=== PATIENT | female | born 1990 | race Caucasian/White ===

== ENCOUNTER 2019-02-22 05:55 | Outpatient (CLI) | payer BC ==
[~2019-02-22] VITALS: Ht 170.2 cm; Wt 96.6 kg
[~2019-02-22 05:55] MED LIST: BIRTH CONTROL PO; DOCU100C37 PO; IBUP-1780 PO; OXYC-465 PO; PREN1TAB19 PO
[2019-02-22] MEDS ORDERED: OXYC-465 PO (09:50)
[2019-02-22] MEDS ORDERED: IBUP-1780 PO (09:50)
[2019-02-22] MEDS ORDERED: DOCU100C37 PO (09:50)
--- NOTE | 2019-02-22 09:51 | Discharge Instructions ---
Discharge Instructions Discharge Medications New, Converted or Re-Newed RX: RX on Chart Patient Instructions Patient Instructions: as directed Return to The Hospital For: as directed Activity & Diet Discharge Diet: No Restrictions Activity as Tolerated: No Orders-Post D/C & Referrals Follow Up Appt: RTC 1 week for incision check. Call to make follow up appt. for patient in 4 weeks. Wound Care: Remove gwen, apply benzoin and steri strips. Activity Per routine post instructions. Please call in RX to patient pharmacy. Diet as tolerated Patient may shower or tub bathe as desired. Continue home meds ROCIO BEARD MD Feb 22, 2019 09:51
== END 2019-02-22 12:49 | disposition home or self-care (01) ==
LOC: PREOP 05:55
PROVIDERS: ATTEND Obstetrics & Gynecology
DX: Z01.818 Encounter for other preprocedural examination (principal)

== ENCOUNTER 2019-03-02 04:07 | Inpatient (IN) | payer BC ==
[2019-03-02] VITALS (11 sets, daily range): BP systolic 102–126; BP diastolic 65–78
[~2019-03-02] VITALS: Ht 170.2 cm; Wt 96.2 kg
--- NOTE | 2019-03-02 10:00 | NUR ---
MALICK GARCIA presented to unit via ambulation from home, accompanied by S.O., for repeat . MALICK GARCIA weighed, gowned, voided, and to bed. EFHM and TOCO applied, VS taken. MALICK GARCIA oriented to bed controls, call light, TV, heat, and A/C controls.
[2019-03-02] MEDS ORDERED: D5 LR IV SOLUTION 1,000 ML IV SCH ×2 (10:19→14:30)
[2019-03-02] MEDS ORDERED: ceFAZolin INJECTION 2,000 MG in WATER (STERILE) FOR INJECTION 10 ML IV ONE (10:30)
[2019-03-02] MEDS ORDERED: metroNIDAZOLE 500MG/100ML IVPB 100 ML IV ONE (10:30)
[2019-03-02] MEDS: LACTATED RINGERS 1,000 ML IV PRN ×2 (10:38→11:30)
[2019-03-02] MEDS ORDERED: CATHETER FLUSH 10 ML SYR IV PRN (10:45)
[2019-03-02] MEDS ORDERED: FAMOTIDINE 20MG/2ML IV (PEPCID) IV ONE (10:45)
[2019-03-02] MEDS ORDERED: METOCLOPRAMIDE INJ 10 MG/2 ML (REGLAN) IV ONE (10:45)
[2019-03-02] MEDS ORDERED: CITRIC ACID/SOB CIT (BICITRA) 30 ML UDC PO ONE (10:45)
[2019-03-02 10:48] LABS: BASOPHILS % (AUTO) 0 % (0-10); EOSINOPHILS # (AUTO) 0.1 10^3/uL (0.0-0.3); EOSINOPHILS % (AUTO) 1 % (0-10); HEMATOCRIT 37 % (35-52); HEMOGLOBIN 12.5 G/DL (11.5-16.0); LYMPHOCYTES # (AUTO) 1.4 X 10^3 (1.0-4.0); LYMPHOCYTES % (AUTO) 18 % (12-44); MEAN CORPUSCULAR HEMOGLOBIN 30 PG (25-34); MEAN CORPUSCULAR HGB CONC 33 G/DL (32-36); MEAN CORPUSCULAR VOLUME 90 FL (80-99); MEAN PLATELET VOLUME 11.3 FL (7.4-10.4); MONOCYTES # (AUTO) 0.5 X 10^3 (0.0-1.0); MONOCYTES % (AUTO) 7 % (0-12); NEUTROPHILS # (AUTO) 5.9 X 10^3 (1.8-7.8); NEUTROPHILS % (AUTO) 74 % (42-75); PLATELET COUNT 185 10^3/uL (130-400); WHITE BLOOD COUNT 7.9 10^3/uL (4.3-11.0)
[2019-03-02] MEDS ORDERED: ceFAZolin 2 GM/NS 50 ML IVPB IV ONE (11:00)
[2019-03-02] MEDS ORDERED: ceFAZolin 2 GM/50 ML NS 50 ML ONE (11:15)
[2019-03-02] MEDS ORDERED: fentaNYL INJECTION 100 MCG/2 ML AMP ONE (11:42)
--- NOTE | 2019-03-02 12:00 | HISTORY AND PHYSICAL ---
DATE OF SERVICE: 03/02/2019 ADMIT HISTORY AND PHYSICAL AND PREOPERATIVE HISTORY AND PHYSICAL HISTORY OF PRESENT ILLNESS: The patient is a 28-year-old G2, P1, 1 white female with an EDC of 03/10/2019. Admitted on 03/02/2019 at 38 weeks gestation for a repeat . She currently is 38 and 6/7 weeks. She has oligohydramnios that has been progressive. She denies ruptured membranes or bleeding. The GBS culture was negative. She has had no other problems with this . ALLERGIES: None. MEDICATIONS: vitamins. Medical, social, and surgical histories are per the antepartum record. PHYSICAL EXAMINATION: HEENT: Normal. NECK: Supple. No lymphadenopathy. No thyromegaly. ABDOMEN: Gravid, soft, nontender and nondistended. EXTREMITIES: Show no clubbing or cyanosis. There is no Homans sign. PELVIC EXAM: Deferred. ASSESSMENT AND PLAN: A 38 and 6/7 weeks gestation in a patient with a previous and with progressive oligohydramnios. The patient is admitted now for repeat delivery. Surgical risks, complications, recovery and follow up have been fully discussed. The patient accepts those risks and is ready to proceed with the repeat . Job ID: [id number] DocumentID: [id number] Dictated Date: 03/02/2019 11:41:49 Sheltered Workshop Worker Date: 03/02/2019 11:59:16 Dictated By: ROCIO BEARD MD
[2019-03-02] MEDS ORDERED: ONDANSETRON 4 MG/2 ML (SDV) Z0FRAN ONE (12:24)
[2019-03-02] MEDS ORDERED: BUPIVACAINE 0.5% 30 ML (SENSORCAINE) VIAL ONE (12:24)
[2019-03-02] MEDS: OXYTOCIN/NORMAL SALINE 500 ML IV SCH ×2 (13:00→22:59)
[2019-03-02] MEDS ORDERED: OXYTOCIN (PITOCIN) 10 UNIT/ML VIAL ONE (13:03)
--- NOTE | 2019-03-02 13:45 | NUR ---
Pt to PP room 308 via bed accompanied by OB staff. Pt and S.O. oriented to room and call light. packet and room service explained. SCD's on and activated. Fresh ice water provided. Pt denies needs or concerns at this time.
[2019-03-02] MEDS ORDERED: diphenhydrAMINE 50 MG/ML INJ (BENADRYL) IV PRN (14:00)
[2019-03-02] MEDS ORDERED: NALOXONE 0.4 MG/ML 1 ML (NARCAN) VIAL IV PRN (14:00)
[2019-03-02] MEDS ORDERED: ONDANSETRON 4 MG/2 ML (SDV) Z0FRAN IV PRN (14:00)
[2019-03-02] MEDS ORDERED: KETOROLAC 30 MG/ML VIAL ONE (14:21)
[2019-03-02] MEDS ORDERED: ONDANSETRON 4 MG/2 ML (SDV) Z0FRAN IVP PRN (14:30)
[2019-03-02] MEDS ORDERED: TETANUS,DIPTH,PERTUSS P/F (BOOSTRIX) 0.5 ML VIAL IM ONE (14:30)
[2019-03-02] MEDS ORDERED: MEASLES,MUMPS,RUBELLA 1 EA INJ SC ONE (14:30)
[2019-03-02] MEDS: KETOROLAC 30 MG/ML VIAL IVP SCH ×2 (14:30→20:31)
[2019-03-02] MEDS ORDERED: oxyCODONE/APAP 10/325MG (PERCOCET 10) TABLET PO PRN (14:30)
--- NOTE | 2019-03-02 15:15 | OPERATIVE REPORT ---
DATE OF SERVICE: 03/02/2019 PREOPERATIVE DIAGNOSES: Term at 38 and 6/7 weeks' gestation with previous and with progressive oligohydramnios. POSTOPERATIVE DIAGNOSES Term at 38 and 6/7 weeks' gestation with previous and with progressive oligohydramnios. OPERATIVE PROCEDURE: Repeat low transverse delivery of a viable female with Apgars of 8 and 9 at 1 and 5 minutes respectively, weight of 8 pounds 7 ounces. time of 12:21 and a cord blood pH is pending. OPERATIVE DESCRIPTION: With the patient in the supine position under satisfactory spinal analgesia, she was prepped and draped in the usual fashion for abdominal surgery. Beltre catheter was placed in the urinary bladder. Repeat Pfannenstiel incision was made through the skin with a scalpel at the site of the patient's previous Pfannenstiel incision. The abdomen was entered in the usual manner. There were some more adhesions of the omentum to the anterior abdominal wall and to the front of the uterus. These were lysed sharply and bluntly to allow complete access to the uterus. Bladder retractor placed into position and a clean scalpel was used to make a 4 cm hysterotomy incision transversely across the lower uterine segment that was extended by blunt dissection as well. Small amount of clear fluid was released on hysterotomy. Stone forceps were applied to facilitate the delivery of the female with stats as noted above. The was bulb suctioned on delivery of the head and again on completion of delivery. The umbilical cord was doubly clamped and cut and the infant passed to the pediatric nurse in attendance for the delivery. Cord bloods were obtained. The placenta delivered spontaneously was normal with a 3-vessel cord. The uterus was exteriorized and anterior wiped clean with a wet laparotomy sponge. Uterine incision closed with a running locked suture of 2-0 Vicryl. Additional sutures and additional adhesions were taken freed from the anterior surface of the uterus. With the adhesions freed, the anatomy restored to normal. No bleeding. The uterus was returned to abdominal cavity. All blood clot and debris was removed from the abdominal cavity. With sponge, needle counts correct, hemostasis assured. The anterior parietal peritoneum was closed with running suture of 2-0 Vicryl. Rectus muscles were closed with that suture. Rectus fascia was closed with 2-0 Vicryl, subcutaneous tissue was closed with 2-0 Vicryl and the skin was stapled. Job ID: [id number] DocumentID: [id number] Dictated Date: 03/02/2019 12:45:22 Appointment Manager Date: 03/02/2019 15:13:56 Dictated By: ROCIO BEARD MD
--- NOTE | 2019-03-02 18:30 | NUR ---
RN to room to answer call light. Pt needing to void. Pt assisted to standing position and ambulates self to bathroom without incident. +void, 425ml clear, yellow urine noted. Pericare provided and fresh vpad, underwear applied. Pt assisted back to bed, SCD's back on and activated. Pt denies needs or concerns at this time.
[2019-03-02] MEDS: DOCUSATE SODIUM 100 MG (COLACE) CAP PO SCH (20:31)
[2019-03-02] MEDS ORDERED: DOCUSATE SODIUM 100 MG (COLACE) CAP PO SCH (21:00)
--- NOTE | 2019-03-03 00:20 | NUR ---
pt pumping at this time, void noted, fresh ice water given. denies needs.
[2019-03-03 02:30] VITALS: BP 114/73
[2019-03-03] MEDS: KETOROLAC 30 MG/ML VIAL IVP SCH ×2 (02:45→08:59)
[2019-03-03 06:05] VITALS: BP 121/82
--- NOTE | 2019-03-03 07:00 | NUR ---
REPORT FROM SAUL MCCANN.
--- NOTE | 2019-03-03 07:43 | Progress Note ---
Standard Progress Note Progress Notes/Assess & Plan Date Seen by a Provider: Mar 03, 2019 Time Seen by a Provider: 07:42 Progress/Assessment & Plan This patient is without complaint. She is ambulating, voiding, tolerating oral intake well has good pain control. Patient denies chest pain, denies shortness of breath, denies nausea vomiting, and denies headache. Vital Signs 03/03/19 06:05 Temp 97.4 Pulse 78 Resp 18 B/P (MAP) 121/82 (95) Pulse Ox 99 O2 Delivery Room Air Vital signs are stable. Patient is afebrile. The abdomen is benign. The fundus is firm below the umbilicus and nontender. The incision is clean dry and intact. Extremities show no clubbing or cyanosis. There is no Homans sign. Assessment and plan postoperative day number 1 status post repeat doing well. Plan is for routine convalescence care ROCIO BEARD MD Mar 03, 2019 07:43
--- NOTE | 2019-03-03 08:00 | NUR ---
DR BEARD HERE NEW ORDERS RECEIVED.
[2019-03-03] MEDS: DOCUSATE SODIUM 100 MG (COLACE) CAP PO SCH ×2 (08:59→20:30)
[2019-03-03 09:00] VITALS: BP 119/79
--- NOTE | 2019-03-03 09:00 | NUR ---
INITIAL ASSESSMENT COMPLETED, PT RESTING COMFORTABLY IN BED WITH S/O AND INFANT AT SIDE. SCHEDULED MEDS GIVEN PER DR ORDERS. VSS. PLAN OF CARE EXPLAINED TO PT AND S/O, QUESTIONS ANSWERED, PT VERBALIZES UNDERSTANDING OF PLAN OF CARE. IV TORADOL GIVEN WITH SALINE FLUSH THEN D/C PER DR ORDERS. SHOWER SET UP, NO DISTRESS NOTED WILL CONTINUE TO MONITOR.
--- NOTE | 2019-03-03 10:15 | NUR ---
PT OUT OF SHOWER, UP AMBULATING IN HALLWAYS PUSHING IN OPEN CRIB, S/O AT SIDE, NO DISTRESS NOTED WILL MONITOR.
--- NOTE | 2019-03-03 11:25 | NUR ---
DR BEARD HERE VISITING WITH PT, NO NEW ORDERS OR C/O NOTED.
[2019-03-03 13:00] VITALS: BP 134/64
--- NOTE | 2019-03-03 13:00 | Anesthesia-Regional Post-Op ---
Regional Patient Condition Mental Status: Alert, Oriented x3 Circulation: Same as Pre-Op Headache: Absent Sensation: Full Recovery Motor Block: Absent Post Op Complications Complications None Follow Up Care/Instructions Patient Instructions None needed. Anesthesia/Patient Condition Patient is doing well, no complaints, stable vital signs, no apparent adverse anesthesia problems. No complications reported per nursing. NEVIN SILVER CRNA Mar 03, 2019 12:59
--- NOTE | 2019-03-03 13:35 | NUR ---
PT SITTING IN ROCKING CHAIR WITH INFANT IN ARMS, DENIES C/O OR NEEDS, PTS S/O AT SIDE.
--- NOTE | 2019-03-03 15:20 | NUR ---
SCHEDULED MOTRIN GIVEN, PT BACK TO BED, IS ORDERED FOR PT, RT CALLED TO BE NOTIFIED OF NEW ORDER.
[2019-03-03] MEDS: IBUPROFEN 800 MG (MOTRIN) TAB PO SCH ×2 (15:21→20:30)
[2019-03-03 17:59] VITALS: BP 121/70
--- NOTE | 2019-03-03 22:00 | NUR ---
pt awake in bed, denies needs at this time.
[2019-03-03 23:45] VITALS: BP 105/72
--- NOTE | 2019-03-04 | NUR ---
Pt resting in bed, s.o. at bedside. Denies needs.
[2019-03-04] MEDS: IBUPROFEN 800 MG (MOTRIN) TAB PO SCH ×2 (03:05→09:23)
[2019-03-04 06:00] VITALS: BP 113/76
--- NOTE | 2019-03-04 06:00 | NUR ---
pt resting in bed, VSS. fresh ice water given, pt denies needs at this time.
--- NOTE | 2019-03-04 09:01 | NUR ---
Dr. Patino here to see pt. D/C orders rec'd.
--- NOTE | 2019-03-04 09:21 | Progress Note ---
Standard Progress Note Progress Notes/Assess & Plan Date Seen by a Provider: Mar 04, 2019 Time Seen by a Provider: 09:19 Progress/Assessment & Plan This patient is without complaint. She is ambulating, voiding, tolerating oral intake well has good pain control. Patient denies chest pain, denies shortness of breath, denies nausea vomiting, and denies headache. Vital Signs 03/03/19 06:05 Temp 97.4 Pulse 78 Resp 18 B/P (MAP) 121/82 (95) Pulse Ox 99 O2 Delivery Room Air Vital signs are stable. Patient is afebrile. The abdomen is benign. The fundus is firm below the umbilicus and nontender. The incision is clean dry and intact. Extremities show no clubbing or cyanosis. There is no Homans sign. Assessment and plan postoperative day number 1 status post repeat doing well. Plan is for routine convalescence care MARCH 04, 2019 Patient without complaint. She is ambulating, voiding, tolerating oral intake well. Patient is requesting discharge home. Vital Signs Date Time Temp Pulse Resp B/P (MAP) Pulse Ox O2 Delivery O2 Flow Rate FiO2 03/04/19 06:00 97.9 71 16 113/76 (88) 98 Room Air 03/03/19 23:45 98.1 80 16 105/72 (83) 97 Room Air 03/03/19 17:59 98.6 75 18 121/70 (87) 100 Room Air 03/03/19 13:00 98.1 74 18 134/64 (87) 100 Room Air I & O 03/04/19 07:00 Intake Total 3060 ml Output Total 4400 ml Balance -1340 ml Vital signs are stable. Patient is afebrile. Abdomen is benign. The surgical incision is clean dry and intact. Fundus is firm below the umbilicus and nontender. Extreme show no clubbing cyanosis. There is no Homans sign. There is minimal pretibial pitting edema. Assessment and plan operative day number 2 status post repeat delivery doing well. Plan is for discharge home with follow-up in clinic Final Diagnosis 38 6/7 WEEK REPEAT ROCIO BEARD MD Mar 04, 2019 09:21
[2019-03-04] MEDS ORDERED: DOCU100C37 PO (09:22)
[2019-03-04] MEDS ORDERED: OXYC-465 PO (09:22)
[2019-03-04] MEDS ORDERED: IBUP-1780 PO (09:22)
[2019-03-04] MEDS: DOCUSATE SODIUM 100 MG (COLACE) CAP PO SCH (09:22)
[2019-03-04 09:24] VITALS: BP 110/73
--- NOTE | 2019-03-04 09:24 | Discharge Instructions ---
Discharge Instructions Discharge Medications New, Converted or Re-Newed RX: RX on Chart Patient Instructions Patient Instructions: As directed Return to The Hospital For: As directed Activity & Diet Discharge Diet: No Restrictions Activity as Tolerated: No Orders-Post D/C & Referrals Follow Up Appt: RTC on Sunday, March 10, 2019 at 930 a.m. for incision check. Call to make follow up appt. for patient in 4 weeks. Wound Care: Remove gwen, apply benzoin and steri strips. Activity Per routine post instructions. Please call in RX to patient pharmacy. Diet as tolerated Patient may shower or tub bathe as desired. Continue home meds ROCIO BEARD MD Mar 04, 2019 09:24
[2019-03-04] MEDS ORDERED: TETANUS,DIPTH,PERTUSS P/F (BOOSTRIX) 0.5 ML VIAL IM ONE (12:39)
--- NOTE | 2019-03-04 13:10 | NUR ---
DISCHARGE INSTRUCTIONS EXPLAINED TO PT WITH COPY PROVIDED TO PT ALONG WITH SCRIPT FOR PERCOCET. PT NOTIFIED [facility] FOLLOW UP APPTS MADE. PT VERBALIZES UNDERSTANDING OF TEACHING, AND SIGNS TO VERIFY. DENIES QUESTIONS OR CONCERNS AT THIS TIME. CHINYERE REMOVED AND INCISION DRESSED WITH STERI STRIPS. PT TOLERATES PROCEDURE WELL. ENCOURAGED TO PT TO CALL WHEN READY FOR DISMISSAL.
--- NOTE | 2019-03-04 14:13 | NUR ---
SHAYLA CALLED TO [facility] VOIC[facility]
--- NOTE | 2019-03-04 14:25 | NUR ---
PT AMBULATES OFF UNIT TO PRIVATE VEHICLE ACCOMPANIED BY Joseph, HUMPHREY, RN. ALL PERSONAL BELONGINGS WITH PT. NO S/S OF DISTRESS NOTED.
== END 2019-03-04 14:25 | disposition home or self-care (01) | DRG 787 ==
LOC: LDRP 10:05
PROVIDERS: ADMIT Obstetrics & Gynecology; ATTEND Obstetrics & Gynecology
PROC: 10D00Z1 Extraction of Products of Conception, Low, Open Approach (ICD-10-PCS; principal; 2019-03-02 11:55)
DX: O34.211 Maternal care for low transverse scar from previous cesarean delivery (principal); O41.03X0 Oligohydramnios, third trimester, not applicable or unspecified; Z37.0 Single live birth; Z3A.38 38 weeks gestation of pregnancy
CPT/HCPCS: 36415; 85025; 86850; 86900; 86901; 87081; 90715; 94664